=== PATIENT | male | born 1955 | race Caucasian/White ===

== ENCOUNTER 2017-01-14 09:12 | Day surgery (SDC) | payer OTHER ==
[~2017-01-14 09:12] MED LIST: AMIO200T42 PO; ASPI-496 PO; ATOR20TA PO; CARV-39 PO; CARV12.52 PO; CARV6.252 PO; DABI150C PO; LISI-170 PO
== END 2017-01-14 13:00 ==
LOC: CACL 09:12
PROVIDERS: ATTEND Internal Medicine Cardiovascular Disease
DX: R55 Syncope and collapse (principal); I10 Essential (primary) hypertension; Z79.82 Long term (current) use of aspirin; Z72.89 Other problems related to lifestyle
CPT/HCPCS: 33282; C1764; J3490

== ENCOUNTER 2017-01-19 07:07 | Observation (INO) | payer OTHER ==
[~2017-01-19] VITALS: Ht 182.9 cm; Wt 88.5 kg
[2017-01-19] MEDS ORDERED: CEFAZOLIN PMX 1GM/50ML 50 ML IVPB ONE (07:30)
[2017-01-19 07:31] VITALS: BP 141/87
[2017-01-19] MEDS ORDERED: OMEG1CAP23 PO (07:40)
[2017-01-19] MEDS ORDERED: ASPI-496 PO (07:40)
[2017-01-19 07:50] LABS: HEMATOCRIT 42.4 % (39.2-51.8); HEMOGLOBIN 14.2 g/dL (13.7-18.0); WHITE BLOOD COUNT 2.5 x10^3/uL (3.4-10)
[2017-01-19 08:02] LABS: ASPARTATE AMINO TRANSFERASE 36 U/L (15-37); BLOOD UREA NITROGEN 19 mg/dL (7-18)
[2017-01-19] MEDS ORDERED: LIDOCAINE 2%, 20ML ONE (08:35)
[2017-01-19] MEDS ORDERED: FENTANYL PF 100 MCG/2ML ONE (08:35)
[2017-01-19] MEDS ORDERED: CEFAZOLIN PMX 1GM/50ML 50 ML ONE (08:35)
[2017-01-19] MEDS ORDERED: CEFAZOLIN 1,000 MG ONE (08:35)
[2017-01-19] MEDS ORDERED: MIDAZOLAM 1 MG/ML, 5ML ONE (08:35)
[2017-01-19] MEDS ORDERED: DIPHENHYDRAMINE 50 MG/ML, 1ML ONE (08:53)
[2017-01-19] MEDS ORDERED: ZOLPIDEM 5MG TABLET PO PRN (10:00)
[2017-01-19] MEDS ORDERED: ONDANSETRON 2MG/ML, 2ML IV PRN (10:00)
[2017-01-19 14:25] VITALS: BP 123/83
[2017-01-19] MEDS: HYDROcodone/APAP 5/325 TABLET PO PRN ×2 (14:59→19:24)
[2017-01-19] MEDS: SODIUM CHLORIDE 0.9% 1,000 ML IV SCH ×3 (15:00→21:39)
[2017-01-19 18:55] VITALS: BP 136/87
[2017-01-19] MEDS: CEFAZOLIN PMX 1GM/50ML 50 ML IVPB SCH (19:16)
[2017-01-19] MEDS: ASPIRIN 81 MG TABLET EC PO SCH (19:16)
[2017-01-19] MEDS ORDERED: ATORVASTATIN 20 MG TABLET PO SCH (21:00)
[2017-01-19] MEDS: SODIUM CHLORIDE FLUSH 10ML SYR IVF SCH (21:39)
[2017-01-20] MEDS: CEFAZOLIN PMX 1GM/50ML 50 ML IVPB SCH (01:05)
[2017-01-20 02:00] VITALS: BP 146/77
[2017-01-20] MEDS: ASPIRIN 81 MG TABLET EC PO SCH (05:13)
[2017-01-20] MEDS: SODIUM CHLORIDE 0.9% 1,000 ML IV SCH (05:13)
[2017-01-20 06:55] VITALS: BP 155/97
[2017-01-20] MEDS: SODIUM CHLORIDE FLUSH 10ML SYR IVF SCH (08:08)
[2017-01-20] MEDS ORDERED: OMEGA-3/FISH OIL CAPSULE PO SCH (09:00)
[2017-01-20] MEDS ORDERED: LISINOPRIL 20 MG TABLET PO SCH (09:00)
== END 2017-01-20 10:40 | disposition home or self-care (01) ==
LOC: CACL 07:07 → ORIP 09:59 → 5SO 14:22 → DCLOUNGE 01-20 10:28
PROVIDERS: ADMIT Internal Medicine Cardiovascular Disease; ATTEND Internal Medicine Cardiovascular Disease
DX: I49.5 Sick sinus syndrome (principal); R55 Syncope and collapse; I48.91 Unspecified atrial fibrillation
CPT/HCPCS: 33208; 33284; 36415; 71010; 71020; 80053; 85025; 85610; 96365; 96375; 99156; 99157; C1779; C1785; C1892; G0378; J0690; J1200; J2250; J3010; J3490; J7030

== ENCOUNTER → 2020-02-23 | Outpatient (CLI) | payer OTHER ==
[~2020-02-23] MED LIST changes: +OMEG1CAP23 PO
== END | disposition home or self-care (01) ==
LOC: STAR 15:38
PROVIDERS: ATTEND Anesthesiology
DX: Z01.812 Encounter for preprocedural laboratory examination (principal); Z20.828 Contact with and (suspected) exposure to other viral communicable diseases
CPT/HCPCS: 36415; 87635

== ENCOUNTER 2020-02-28 07:03 | Day surgery (SDC) | payer MEDICARE, OTHER ==
[~2020-02-28] VITALS: Ht 182.9 cm; Wt 99.0 kg
[2020-02-28 07:35] VITALS: BP 147/94
[2020-02-28] MEDS ORDERED: CHLORHEXIDINE 15 ML UDC MM STA (07:40)
[2020-02-28] MEDS ORDERED: LACTATED RINGERS 1,000 ML IV SCH (07:40)
[2020-02-28] MEDS ORDERED: PROPOFOL 50 ML ONE (07:56)
== END 2020-02-28 10:15 | disposition home or self-care (01) ==
LOC: OUT 07:03
PROVIDERS: ATTEND Internal Medicine
DX: Z12.11 Encounter for screening for malignant neoplasm of colon (principal); D12.2 Benign neoplasm of ascending colon; K64.0 First degree hemorrhoids; E78.5 Hyperlipidemia, unspecified; I42.9 Cardiomyopathy, unspecified; I10 Essential (primary) hypertension; Z95.0 Presence of cardiac pacemaker; Z87.891 Personal history of nicotine dependence; Z79.899 Other long term (current) drug therapy; Z86.010 Personal history of colon polyps; Z72.89 Other problems related to lifestyle; Z79.82 Long term (current) use of aspirin; Z82.49 Family history of ischemic heart disease and other diseases of the circulatory system; Z83.3 Family history of diabetes mellitus
CPT/HCPCS: 45380; 45385; 88305; 93005; J2704; J7120

== ENCOUNTER 2020-05-08 07:28 | Outpatient (CLI) | payer MEDICARE, OTHER | END 2020-05-08 23:59 | disposition home or self-care (01) | LOC: CVU 07:28 | PROVIDERS: ATTEND Physician Assistant Medical | DX: I08.0 Rheumatic disorders of both mitral and aortic valves (principal); R55 Syncope and collapse; I42.9 Cardiomyopathy, unspecified; I44.7 Left bundle-branch block, unspecified | CPT/HCPCS: 93306 ==

== ENCOUNTER 2021-02-20 06:54 | Outpatient (CLI) | payer MEDICARE ==
[2021-02-20] MEDS ORDERED: REGADENOSON 0.4 MG/5 ML SYRINGE ONE (07:27)
== END 2021-02-20 23:59 | disposition home or self-care (01) ==
LOC: CFH 06:54
PROVIDERS: ATTEND Nurse Practitioner Family
DX: I08.3 Combined rheumatic disorders of mitral, aortic and tricuspid valves (principal); I11.9 Hypertensive heart disease without heart failure; I21.09 ST elevation (STEMI) myocardial infarction involving other coronary artery of anterior wall; I42.9 Cardiomyopathy, unspecified; I48.91 Unspecified atrial fibrillation; R55 Syncope and collapse
CPT/HCPCS: 78452; 93017; 93306; 93356; A9502; J2785